=== PATIENT | male | born 1985 | race Caucasian/White ===

== ENCOUNTER 2016-11-09 07:29 | Emergency (ER) | payer SELFPAY ==
[2016-11-09] MEDS ORDERED: ONDANSETRON 4 MG/2ML 2 ML VIAL ONE (08:15)
[2016-11-09] MEDS ORDERED: SODIUM CHLORIDE 0.9% 1,000 ML ONE ×2 (08:15→09:23)
[2016-11-09] MEDS ORDERED: KETOROLAC TROMETHAMINE 30 MG/ML 1 ML VIAL ONE (08:15)
[2016-11-09 08:23] LABS: ABSOLUTE NEUTROPHIL COUNT 3.5 K/mm3 (1.8-7.7); BASO % 0.3 % (0.2-1.0); EOS # 0.2 (0.0-0.5); EOS % 3.2 % (0.9-2.9); HEMATOCRIT 44.5 % (32.0-52.0); HEMOGLOBIN 15.5 gm/l (14.0-18.0); IMM NEUT% 0.2 % (0-1); LYMPH # 1.3 (1.0-4.8); LYMPH % 22.6 % (15-45); MEAN CELL VOLUME 92.5 fl (80.0-94.0); MEAN CORPUSCULAR HEMOGLOBIN 32.2 pg (27.0-31.0); MEAN CORPUSCULAR HGB CONC 34.8 g/dl (33.0-37.0); MEAN PLATELET VOLUME 10.8 fl (7.4-10.4); MONO # 0.8 (0.0-0.8); NEUT % 59.7 % (43-75); PLATELET COUNT 159 K/mm3 (130-400); RED CELL DISTRIBUTION WIDTH 11.6 % (11.5-14.5)
[2016-11-09 09:55] LABS: ALB/GLOB RATIO 1.3 (>1.0)
[2016-11-09 10:29] LABS: CALCIUM 9.1 mg/dL (8.6-10.3)
== END 2016-11-09 10:49 | disposition home or self-care (01) ==
LOC: ED 07:29
DX: R05 Cough (principal); R11.2 Nausea with vomiting, unspecified; B34.9 Viral infection, unspecified
CPT/HCPCS: 85025; 80053; 87804; 96375; 99284 ×2; 96374; 96361; J1885; J2405; J7030 ×2